=== PATIENT | female | born 1960 | race Caucasian/White ===

== ENCOUNTER → 2019-10-18 | Day surgery (SDC) | payer BC, OTHER ==
--- NOTE | 2019-10-21 11:06 | OP ---
DATE OF OPERATION: 10/18/2019 PREOPERATIVE DIAGNOSIS: Left breast mass 5 to 6 o'clock, 2 to 4 cm from the nipple. POSTOPERATIVE DIAGNOSIS: Left breast mass 5 to 6 o'clock, 2 to 4 cm from the nipple. PROCEDURE: Left breast ultrasound-guided core biopsy with clip placement. ANESTHESIA: Local. ATTENDING SURGEON: Evangelina Marshall MD ESTIMATED BLOOD LOSS: Minimal. COMPLICATIONS: None. PROCEDURE: Patient was made aware of the risks and benefits of the procedure and consented. Patient was placed in the supine position. Under sterile conditions with 2% lidocaine for local anesthesia, small joby was made in the skin. Using a 13-gauge suction biopsy device via lateral approach under ultrasound guidance, multiple cores were obtained and submitted to Pathology. Likewise, under ultrasound guidance a bowtie clip was placed into the biopsy region. Well tolerated by patient. Steri-Strip and a sterile bandage were applied. We will contact her with the results of the procedure. EVANGELINA MARSHALL M.D. [id number]
--- NOTE | 2019-10-22 12:05 | PATH ---
Surgical Pathology Report Patient Name: ARTURO ALCANTARA [facility]. Rec. #: [id number] /Age/Gender: 1960 (Age: 59) / F Account: [id number] Location: [facility] RADIOLOGY U Taken: 10/18/2019 Received: 10/18/2019 Reported: 10/22/2019 Physicians: Star Roman M.D. Specimen(s) Received LEFT BREAST 5-6:00 2-4 CM FN CORE BIOPSY Clinical History Palpable mass Ultrasound findings: Highly suspicious/malignant Final Diagnosis Breast, left, 5-6:00, 2-4 cm fn, core biopsy: Invasive ductal carcinoma, poorly differentiated, measuring 1.3 cm in greatest dimension In this material. (See note). Note: The carcinoma shows strong membranous positivity for E-Cadherin (performed at [facility]), which supports ductal phenotype. Results of ER and SD studies performed on this specimen at [facility] are as follows: ER (clone [id number] mouse monoclonal antibody by [employer]ica): _X_ Positive: > 95 % nuclear staining with strong intensity. PgR (clone16 mouse monoclonal antibody by Leica): _X_ Positive: ~40 % nuclear staining with moderate to strong intensity. Results of Her2 & Ki67 studies will be reported separately in an addendum. Positive and negative controls (internal if applicable) show appropriate results. Formalin fixation time is within current ASCO/CAP recommendations for ER, SD and Her2 testing. Time to formalin fixation is not given (presumed immediate). Electronically Signed Blanka Yan M.D. Addendum Reported: 10/23/2019 Addendum Diagnosis Results of Her2 (IHC) & Ki-67 studies performed at [place], [place] ([id number]) are as follows: Her2 IHC (EP3 from [employer], formerly known as [id number], using Mohr Polymer Refine detection kit): 0 (negative). Ki-67: 50-60 % (high proliferative index). Positive and negative controls (internal if applicable) show appropriate results. Blanka Yan M.D. Gross Description Received in formalin labeled "left 5-6:00, 2-4 cmfn," is a 2.0 x 2.0 x 0.2 cm aggregate of multiple slade-yellow, irregular to cylindrical portions of fibroadipose tissue admixed with blood clot. The formalin is filtered and the specimen is entirely submitted in one cassette. Time to formalin fixation: Not given (presumed immediate) Total formalin fixation time: Approximately 6 hours 10/18/201910/18/2019
== END | disposition home or self-care (01) ==
LOC: FRADUS-SUR 13:35
PROVIDERS: ATTEND Surgery Surgical Oncology
PROC: 0HBU3ZX Excision of Left Breast, Percutaneous Approach, Diagnostic (ICD-10-PCS; principal; 2019-10-18)
DX: C50.512 Malignant neoplasm of lower-outer quadrant of left female breast (principal); Z17.0 Estrogen receptor positive status [ER+]; N63.23 Unspecified lump in the left breast, lower outer quadrant
CPT/HCPCS: 19083; 87899; 88305-TC; 88342-TC; A4648

== ENCOUNTER 2019-11-28 11:06 | Day surgery (SDC) | payer BC, OTHER ==
[2019-11-21 10:37] VITALS: BMI 20.3
--- NOTE | 2019-11-21 12:15 | HP ---
Admitting History and Physical - Primary Care Physician PCP: Daryn Eckert - Admission Chief Complaint: left breast cancer History of Present Illness: Patient is a 59 yo female with family h/o breast cancer, who was noted to have a suspicious left breast mass at 5-6 oclock position (2-4 cm FN) approx 2.3 cm for which a bx was recommended. The patient underwent a left breast core bx which was c/w invasive ductal ca ER/RI positive, Her 2 neg. The patient underwent genetic testing which was negative. The MRI was c/w newly diagnosed left breast cancer without evidence of multifocal or contralateral dz. The patient is presenting for left breast WE, snbx, lympho mag seed placement and mastopexy. History Source: Patient Limitations to Obtaining History: No Limitations - Past Medical History Rheumatology: Yes: Lupus (skin Lupus? elevated JEFFERY) ENT: Yes: Other (glaucoma) Dermatology: Yes: Eczema - Past Surgical History Past Surgical History: Yes: Hernia Repair (umbilical), Hysterectomy (TAHBSO at age 55 fibroids with prior myopmectomies) Additional Past Surgical History: removal of post ear keloids umbilical hernia repair deviated septal repair and polypectomy - Smoking History Smoking history: Former smoker Have you smoked in the past 12 months: No If you are a former smoker, when did you quit?: 1988 - Alcohol/Substance Use Hx Alcohol Use: No Home Medications - Allergies Allergies/Adverse Reactions: Allergies Allergy/AdvReac Type Severity Reaction Status Date / Time No Known Allergies Allergy Verified 10/24/19 14:03 - Home Medications Home Medications: Ambulatory Orders Sertraline HCl [Zoloft -] 50 mg PO BID 11/21/19 Family Medical History Family Hx Cancer: Father (colon cancer) Other Family History: mat aunt-breast cancer. mat sec cousin-breast cancer (male x 1 and female x 2) Review of Systems - Review of Systems Constitutional: reports: No Symptoms Cardiovascular: reports: No Symptoms Respiratory: reports: No Symptoms Breasts: reports: See HPI Physical Examination Constitutional: Yes: Well Nourished, Calm Breast(s): Yes: Other (Mildly ptotic B-cup breasts with suspicious mass noted left breast at 5-6, freely mobile and approx 2 cm. No other suspicious masses or adenopathy was noted bilaterally.) Problem List - Problems (1) Breast cancer, left Code(s): C50.912 - MALIGNANT NEOPLASM OF UNSPECIFIED SITE OF LEFT FEMALE BREAST Qualifiers: Breast location: lower outer quadrant of breast Estrogen receptor status: positive Patient sex: female Qualified Code(s): C50.512 - Malignant neoplasm of lower-outer quadrant of left female breast; Z17.0 - Estrogen receptor positive status [ER+] Assessment/Plan Plan: left breast WE with mag seed placement, snbx, lymphoscintogram, poss andx and mag seed placement
[2019-11-28] MEDS ORDERED: PROPOFOL 20 ML ONE ×4 (12:14→14:40)
[2019-11-28] MEDS ORDERED: LIDOCAINE HCL/PF 2% SDV 5ML VIAL ONE (12:14)
[2019-11-28] MEDS ORDERED: DEXAMETHASONE SOD PHOSPHATE 4 MG/1 ML VIAL ONE ×2 (12:14→14:26)
[2019-11-28] MEDS ORDERED: MIDAZOLAM HCL 2 MG/2 ML SINGLE DOSE VIAL ONE (12:14)
[2019-11-28] MEDS ORDERED: BUPIVACAINE HCL/PF 0.5% (5MG/ML) 10 ML VIAL ONE (13:04)
[2019-11-28] MEDS ORDERED: LIDOCAINE HCL 1%, 10 MG/ML (20ML VIAL) ONE (13:04)
[2019-11-28] MEDS ORDERED: ISOSULFAN BLUE 10 MG/ML VIAL SQ ONE (13:14)
[2019-11-28] MEDS ORDERED: ceFAZolin SODIUM 1 GM VIAL ONE (14:22)
[2019-11-28] MEDS ORDERED: ONDANSETRON 4 MG/2 ML VIAL ONE (14:27)
[2019-11-28] MEDS ORDERED: BUPIVACAINE HCL/PF 0.5% (5MG/ML) 10 ML VIAL NR ONE (15:01)
[2019-11-28] MEDS ORDERED: LIDOCAINE HCL 1%, 10 MG/ML (20ML VIAL) NR ONE (15:01)
[2019-11-28] MEDS ORDERED: KETOROLAC TROMETHAMINE 30 MG/1 ML VIAL IVPUSH PRN (15:21)
[2019-11-28] MEDS ORDERED: ONDANSETRON 4 MG/2 ML VIAL IVPUSH PRN ×2 (15:21→15:46)
[2019-11-28] MEDS ORDERED: DEXTROSE 5%-0.45% SALINE 1,000 ML IV SCH (15:30)
[2019-11-28] MEDS ORDERED: oxyCODONE HCL 5 MG TABLET PO PRN (15:46)
[2019-11-28] MEDS ORDERED: ACETAMINOPHEN 1000 MG/100 ML VIAL (NON FORMULARY) IVPB ONE (15:47)
[2019-11-28] MEDS ORDERED: LACTATED RINGERS SOLUTION 1,000 ML IV SCH (16:00)
[2019-11-28] MEDS ORDERED: KETOROLAC TROMETHAMINE 30 MG/1 ML VIAL ONE (16:06)
[2019-11-28] MEDS ORDERED: traMADol HCL 50 MG TABLET ONE (17:09)
[2019-11-28 18:35] VITALS: TEMP 97.4
[2019-11-28 18:52] VITALS: BP 120/68; PULSE 74
--- NOTE | 2019-11-30 21:27 | OP ---
DATE OF OPERATION: 11/28/2019 PREOPERATIVE DIAGNOSIS: Left breast cancer, overlapping regions. POSTOPERATIVE DIAGNOSIS: Left breast cancer, overlapping regions. PROCEDURE: A left breast partial mastectomy with Magseed placement and left axillary sentinel lymph node biopsy with tissue transfer rearrangement by Plastic Surgery. PRIMARY SURGEON: Marcelle Eckert MD CLINICAL TRAINER: MAYA Banks PLASTIC SURGEON: Marcelle Vila MD COMPLICATIONS: None. Briefly, the patient is a 59-year-old, nulliparous white female of [place] descent with a family history with her maternal aunt who had breast cancer in her 50s. She also has a maternal second cousin who had breast cancer and 2 maternal female second cousins who had breast cancer. Her father had colon cancer. The patient underwent a mammography in December 2018, showing some questionable findings in the left breast 4 o'clock region, which on ultrasound felt to be benign. She underwent a followup diagnostic ultrasound October 2019, which was delayed somewhat due to the COVID crisis and was found to have a highly suspicious 2 x 1.1 x 2.3 cm density in the left breast 5-6 o'clock region. Ultrasound-guided core biopsy showed a poorly-differentiated, invasive duct cancer which was ER/TN positive, HER2/annamaria negative. The patient underwent an MRI showing the cancer to be localized in the left breast 6 o'clock region with no suspicious adenopathy. She was advised on undergoing a partial mastectomy with a sentinel lymph node biopsy and due to the location was sent to Plastic Surgery, and it was felt that she would benefit from a tissue rearrangement at the time of the procedure. The patient was brought in for the procedure on November 28, 2019. She underwent Magseed placement of the cancer in the left breast 6 o'clock region, as well as a lymphoscintigraphy with a periareolar injection of technetium 99. She was then brought to the holding area at [place]. She underwent site verification, and informed consent was obtained. She was marked preoperatively by the plastic surgeon. She underwent COVID testing preoperatively which was negative. The patient was brought into the operating room and laid on the OR table in the supine position. Venodynes were placed on the lower extremities prior to induction. She was given 2 g of Ancef prior to incision. Both breasts were sterilely prepped and draped with the left axilla prepped in the field. Next, 3 mL of Lymphazurin blue were injected peritumorally around the left breast cancer, and massage was instituted. The left axillary sentinel lymph node biopsy was first performed. An incision was made just below the hair-bearing area of the left axilla and dissection was undertaken and blue lymphatics were easily seen coursing to 2 blue hot lymph nodes. The first node had a 10-second gamma count of 18,571, and the second sentinel node had a 10-second gamma count of 2446. Both nodes were sent to Pathology in formalin for permanent section and were grossly negative. Hemostasis was achieved. The axillary wound was closed using interrupted 2-0 plain suture, then interrupted 3-0 deep dermal Vicryl suture and a running 4-0 subcuticular Biosyn suture. At this point, the wide excision was undertaken around the 6 o'clock region in the left breast. This was done through a vertical incision underneath the left breast nipple-areolar complex, and dissection was undertaken around the palpable cancer using the Sentimag device to identify the Magseed which had been placed into the cancer. Dissection was undertaken completely around the cancer all the way down to the pectoralis major muscle, and the specimen was removed intact and oriented with a long lateral/short superior suture. Specimen radiographs showed removal of the clip as well as the Magseed in question. Specimen was then sent to Pathology in formalin. Separate margins were then taken on the superior, inferior, medial, lateral, deep, and anterior margins with a suture marking the biopsy cavity side. Each margin was sent down to Pathology in formalin separately. Again, hemostasis was achieved, and the wound was copiously irrigated. At this point, Dr. Vila became the primary surgeon to perform the tissue transfer rearrangement which will be dictated separately. The incision will be closed by Plastic Surgery. The patient will be recovered in the postanesthesia care unit postoperatively and will be able to be discharged home if discharge criteria are met. She is to follow up in the office in 1 week for formal wound pathology check. All sponge and needle counts were correct at the end of the case. The patient was given a prescription for tramadol for postoperative pain relief since she had reactions to narcotics from previous surgery. MARCELLE ECKERT M.D. [id number]
--- NOTE | 2019-11-30 22:00 | OP ---
DATE OF OPERATION: 11/28/2019 SURGEON: Daryn Vila MD CO-SURGEON: Lewis Hagan MD PREOPERATIVE DIAGNOSES: 1. Left breast cancer. 2. Personal history of breast carcinoma. 3. Status post wide excision, breast cancer of lower pole of left breast. POSTOPERATIVE DIAGNOSES: 1. Left breast cancer. 2. Personal history of breast carcinoma. 3. Status post wide excision, breast cancer of lower pole of left breast. OPERATIVE PROCEDURE: 1. Left immediate breast reconstruction with other technique. 2. Reconstruction with tissue rearrangement, left breast. DESCRIPTION OF OPERATIVE PROCEDURE: The patient was taken to the operating room by Dr. Daryn Eckert for a left breast carcinoma, where a wide resection of the lower pole of the left breast was required and will be dictated under separate cover. The patient also underwent a sentinel lymph node biopsy of the left chest wall, again dictated under separate cover by Dr. Eckert. Upon completion of the extirpation of the lower pole tumor, a large defect in the lower pole of the breast was seen. After copious irrigation and hemostasis was maintained meticulously throughout the entire chest wall pocket, attention was turned to the breast. At this point, 1% plain lidocaine and Marcaine mixture was injected into the defect and laterally into the 5th and 6th rib margins for postoperative pain control. Once this was accomplished, a mobilization of the breast in its lower pole and superiorly was carried out. Using the electrocautery on the lateral and medial portions of the central portion, the breast tissue was raised from the skin flaps laterally and medially. Mobilization of the central portion and lateral portions of the breast were carried out with tissue rearrangement. Advancement flaps were created on both sides of the breast and then advanced medially towards each other and laterally towards each other. These were then advanced and closed upon themselves using multiple sutures of 2-0 Vicryl suture on the deep tissue and the chest wall in both deep and superficial layers. After this 2-layer closure of the breast volume and gathering towards the midline, the skin and subcutaneous tissue were advanced, trimmed at the skin edges, and then closed with multiple layers of sutures. Next, 3-0 PDS suture was placed into the deep dermal tissue, and a subcuticular suture with 3-0 V-Loc was placed into the skin. The tissues themselves were advanced and closed in the axilla. This was also closed with 3-0 suture in deep layers and 4-0 in a subcuticular fashion. Dry sterile dressings with Dermabond and Steri-Strips were placed. Patient was placed into a compressive dressing with Hypafix tape and a Surgi-Bra. She tolerated the procedure well. She went to the recovery room in satisfactory condition. DARYN VILA M.D. [id number]
--- NOTE | 2019-12-04 15:30 | PATH ---
Surgical Pathology Report Patient Name: ARTURO ALCANTARA [facility]. Rec. #: [id number] /Age/Gender: 1960 (Age: 59) / F Account: [id number] Location: [facility] AMBULATORY Taken: 11/28/2019 Received: 11/28/2019 Reported: 12/04/2019 Physicians: Daryn Eckert M.D. Specimen(s) Received A: LEFT BREAST SENTINEL LYMPH NODE #1 B: LEFT BREAST SENTINEL LYMPH NODE #2 C: LEFT BREAST WIDE EXCISION D: ANTERIOR MARGIN LEFT BREAST E: POSTERIOR MARGIN LEFT BREAST F: MEDIAL MARGIN LEFT BREAST G: LATERAL MARGIN LEFT BREAST H: INFERIOR MARGIN LEFT BREAST I: SUPERIOR MARGIN LEFT BREAST Clinical History Invasive IDC Final Diagnosis A. LYMPH NODE, LEFT BREAST, SENTINEL #1, EXCISION: ONE LYMPH NODE, NEGATIVE FOR METASTATIC CARCINOMA (0/1). B. LYMPH NODE, LEFT BREAST, SENTINEL #2, EXCISION: ONE LYMPH NODE, NEGATIVE FOR METASTATIC CARCINOMA (0/1). C. BREAST, LEFT, WIDE EXCISION: INVASIVE DUCTAL CARCINOMA, POORLY DIFFERENTIATED (TUBULE SCORE: 3/3, NUCLEAR GRADE: 3/3, MITOTIC SCORE: 3/3, TOTAL SCORE: 9/9; POLA GRADE 3), MEASURING 1.9 CM IN GREATEST DIMENSION, MICROSCOPICALLY. SURGICAL MARGINS ARE UNINVOLVED BY CARCINOMA; INVASIVE CARCINOMA IS AT 1 MM FROM THE CLOSEST (ANTERIOR AND POSTERIOR), MARGINS. SEE SPECIMENS D-I FOR FINAL MARGINS. LYMPHOVASCULAR INVASION IS IDENTIFIED. PRIOR BIOPSY SITE CHANGES ARE PRESENT. PATHOLOGIC STAGE (pTNM): pT1c pN0. SEE ALSO INVASIVE CARCINOMA CASE SUMMARY BELOW. D. BREAST, LEFT, ANTERIOR MARGIN, EXCISION: BENIGN BREAST TISSUE. E. BREAST, LEFT, POSTERIOR MARGIN, EXCISION: BENIGN FIBROADIPOSE TISSUE. F. BREAST, LEFT, MEDIAL MARGIN, EXCISION: BENIGN BREAST TISSUE SHOWING FOCAL LYMPHOVASCULAR INVASION. NO INVASIVE CARCINOMA IS IDENTIFIED. G. BREAST, LEFT, LATERAL MARGIN, EXCISION: BENIGN BREAST TISSUE SHOWING FIBROCYSTIC CHANGE. H. BREAST, LEFT, INFERIOR MARGIN, EXCISION: BENIGN BREAST TISSUE SHOWING FIBROCYSTIC CHANGE. I. BREAST, LEFT, SUPERIOR MARGIN, EXCISION: BENIGN BREAST TISSUE. Comments Breast Invasive Carcinoma: Surgical Pathology Case Summary (Based on AJCC TNM 8 th edition) Procedure _X_ Excision (less than total mastectomy) Specimen Laterality _X_ Left Tumor Size _X_ Greatest dimension of largest invasive focus >1 mm (millimeters): 19 mm Histologic Type _X_ Invasive carcinoma of no special type, NOS (ductal) Histologic Grade (Pola Histologic Score) Glandular (Acinar)/Tubular Differentiation _X_ Score 3 (<10% of tumor area forming glandular/tubular structures) Nuclear Pleomorphism _X_ Score 3 Mitotic Rate _X_ Score 3 Overall Grade _X_ Grade 3 (scores of 8 or 9) Tumor Focality _X_ Single focus of invasive carcinoma Ductal Carcinoma In Situ (DCIS) _X_ No DCIS in specimen Tumor Extension Skin _X_ Skin is not present. Skeletal Muscle _X_ No skeletal muscle is present. Margins Invasive Carcinoma Margins _X_ Uninvolved by invasive carcinoma Distance from closest margin (millimeters): 1 mm from closest anterior & posterior margin; final anterior (D) and posterior (E) margins are negative for carcinoma DCIS Margins _X_ No DCIS present in specimen Regional Lymph Nodes _X_ Uninvolved by tumor cells Number of Lymph Nodes Examined: 2 Number of [place] Nodes Examined: 2 Treatment Effect in the Breast _X_ No known presurgical therapy Treatment Effect in the Lymph Nodes _X_ No lymph node metastases and no fibrous scarring or histiocytic aggregates in the nodes Lymphovascular Invasion _X_ Present Pathologic Stage Classification (pTNM, AJCC 8th Edition) Primary Tumor (Invasive Carcinoma) (pT) _X_ pT1c: Tumor >10 mm but =20 mm in greatest dimension Regional Lymph Nodes (pN) Category (pN) _X_ pN0: No regional lymph node metastasis identified or ITCs only Biomarker Studies Results of ER and ME studies performed on prior biopsy () at [facility] are as follows: ER (clone [id number] mouse monoclonal antibody by [employer]): _X_ Positive: > 95% nuclear staining with strong intensity PgR (clone16 mouse monoclonal antibody by [employer]): _X_ Positive: ~40 % nuclear staining with moderate to strong intensity Results of Her2 (IHC) & Ki-67 studies performed prior biopsy () at [place], [place] ([id number]) are as follows: Her2 IHC (EP3 from [employer], formerly known as [id number], using Mohr Polymer Refine detection kit): 0 (Negative) Ki67: 50-60% (high proliferative index) Electronically Signed Blanka Yan M.D. Gross Description A. Received in formalin labeled "left breast sentinel lymph node #1," is a 0.7 x 0.5 x 0.4 cm slade lymph node with attached fat. The specimen is bisected and entirely submitted in one cassette. B. Received in formalin labeled "left breast sentinel node #2," is a 0.6 x 0.4 x 0.3 cm slade possible lymph node. The specimen is submitted in toto in one cassette. C. Received in formalin, labeled "left breast wide excision," is a 5.0 x 4.5 x 2.6 cm. slade-yellow, irregular, portion of fibroadipose tissue. There is a short suture marking the superior aspect and a long suture marking the lateral aspect, per the surgeon. There is no skin present. The specimen is inked as follows: superior and lateral blue; inferior green; medial yellow; anterior red; posterior black. The specimen is serially sectioned from superior to inferior. Sectioning reveals a 2.1 x 1.8 x 1.4 cm slade, firm mass containing a barahona metallic clip. The mass focally abuts the anterior margin and is focally 0.2 cm from the deep margin and 0.3 cm from the lateral margin. The remaining margins appear widely clear of the mass. Microbiology Lab Manager sections are submitted in 7 cassettes as follows: 1-mass with anterior and posterior margins; 2-mass with anterior and posterior margins; 3-mass with anterior, posterior and lateral margins; 4-mass with anterior, posterior and lateral margins; 5-medial margin; 6-superior margin; 7-inferior margin. Time to formalin fixation: 15 minutes Total formalin fixation time: Approximately 27 hours. D. Received in formalin labeled "anterior margin left breast," is a 2.2 x 0.9 x 0.5 cm portion of fibroadipose tissue with a suture marking the biopsy cavity side, per the surgeon. The new margin is inked blue and the specimen is serially sectioned. The specimen is entirely submitted in 2 cassettes. E. Received in formalin labeled "posterior margin left breast," is a 2.0 x 1.1 x 0.7 cm portion of fibroadipose tissue with a suture marking biopsy cavity side, per the surgeon. The new margin is inked blue and the specimen is serially sectioned. The specimen is entirely submitted in 2 cassettes. F. Received in formalin labeled "medial margin," is a 2.4 x 1.3 x 0.9 cm portion of fibroadipose tissue with a suture marking the biopsy cavity side, per the surgeon. The new margin is inked blue and the specimen is serially sectioned. The specimen is entirely submitted in 2 cassettes. G. Received in formalin labeled "lateral margin left breast," is a 2.2 x 1.5 x 0.6 cm portion of fibroadipose tissue with a suture marking the biopsy cavity side, per the surgeon. The new margin is inked blue and the specimen is serially sectioned. The specimen is entirely submitted in 2 cassettes. H. Received in formalin labeled "inferior margin left breast," is a 2.2 x 1.5 x 0.5 cm portion of fibroadipose tissue with a suture marking the biopsy cavity side, per the surgeon. The new margin is inked blue and the specimen is serially sectioned. The specimen is entirely submitted in 2 cassettes. I. Received in formalin labeled "inferior margin left breast," is a 2.3 x 1.7 x 0.5 cm portion of fibroadipose tissue with a suture marking the biopsy cavity side, per the surgeon. The new margin is inked blue and the specimen is serially sectioned. The specimen is entirely submitted in 2 cassettes. 11/29/2019 [facility]
== END 2019-11-28 18:15 | disposition home or self-care (01) ==
LOC: FASU 11:06
PROVIDERS: ATTEND Surgery Surgical Oncology
PROC: 0HBU0ZZ Excision of Left Breast, Open Approach (ICD-10-PCS; principal; 2019-11-28 14:25)
PROC: 0HRU07Z Replacement of Left Breast with Autologous Tissue Substitute, Open Approach (ICD-10-PCS; 2019-11-28 14:25)
PROC: 0JX60ZC Transfer Chest Subcutaneous Tissue and Fascia with Skin, Subcutaneous Tissue and Fascia, Open Approach (ICD-10-PCS; 2019-11-28 14:25)
DX: C50.812 Malignant neoplasm of overlapping sites of left female breast (principal); Z17.0 Estrogen receptor positive status [ER+]; Z80.3 Family history of malignant neoplasm of breast; H40.9 Unspecified glaucoma; L30.9 Dermatitis, unspecified
CPT/HCPCS: 19281; 76098-TC-FY; 78195-TC; 88307-TC; 94760; A9541; J0131; U0003